=== PATIENT | male | born 1945 | race Caucasian/White ===

== ENCOUNTER 2016-11-24 19:55 | Emergency (ER) | payer MEDICARE, BC ==
[~2016-11-24] VITALS: Ht 182.9 cm; Wt 112.0 kg
[~2016-11-24 19:55] MED LIST: ASPI-110 PO; CIPR-9 PO; GABA600T PO; LISI-515 PO; PROT40TA PO
[2016-11-24 20:02] VITALS: BP 169/93; PULSE 76; RESP 16; TEMP 98; O2SAT 98
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
[2016-11-24] MEDS ORDERED: LIDOCAINE 2% JELLY 30 ML TUBE TOPICAL ONE (21:15)
[2016-11-24 21:48] LABS: BLOOD, URINE LARGE (NEG); GLUCOSE,URINE NEG (NEG); KETONE, URINE NEG (NEG); NITRITE,URINE NEG (NEG); URINE COLOR YELLOW (YELLW/STRAW)
[2016-11-24 21:53] LABS: WBC, URINE 100-200 /hpf (0-5)
[2016-11-24 21:54] LABS: BACTERIA, URINE FEW /hpf; COMMENT (UR) CATH-CULTURE IND; CULTURE IF INDICATED CATH CULTURE IND; SQUAMOUS EPITHELIAL CELL URINE 0-5 /hpf (0-5)
[2016-11-24 22:11] VITALS: BP 150/88
== END 2016-11-24 22:11 | disposition home or self-care (01) ==
LOC: PHED 19:55
DX: T83.091A Other mechanical complication of indwelling urethral catheter, initial encounter (principal); T83.511A Infection and inflammatory reaction due to indwelling urethral catheter, initial encounter; N39.0 Urinary tract infection, site not specified; B95.2 Enterococcus as the cause of diseases classified elsewhere
CPT/HCPCS: 51702; 81001; 87077; 87086; 87186

== ENCOUNTER 2016-11-26 05:37 | Emergency (ER) | payer MEDICARE, BC ==
[~2016-11-26] VITALS: Ht 182.9 cm; Wt 108.5 kg
[2016-11-26 05:43] VITALS: BP 170/82; PULSE 76; RESP 18; TEMP 98.3; O2SAT 96
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
[2016-11-26 06:38] VITALS: BP 162/82
== END 2016-11-26 07:00 | disposition home or self-care (01) ==
LOC: PHED 05:37
DX: T83.091A Other mechanical complication of indwelling urethral catheter, initial encounter (principal)
CPT/HCPCS: 51700

== ENCOUNTER 2016-11-27 13:29 | Emergency (ER) | payer MEDICARE, BC ==
[~2016-11-27] VITALS: Ht 182.9 cm; Wt 110.0 kg
[~2016-11-27 13:29] MED LIST changes: -CIPR-9 PO
[2016-11-27 13:33] VITALS: BP 141/67; PULSE 68; RESP 16; TEMP 97.5; O2SAT 96
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
[2016-11-27 14:25] VITALS: BP 142/64; PULSE 65; RESP 16; O2SAT 97
== END 2016-11-27 14:39 | disposition home or self-care (01) ==
LOC: PHED 13:29
DX: T83.091A Other mechanical complication of indwelling urethral catheter, initial encounter (principal); I10 Essential (primary) hypertension
CPT/HCPCS: 51702